=== PATIENT | male | born 1990 | race Two or more races ===

== ENCOUNTER → 2016-07-02 | Outpatient (CLI) | payer OTHER ==
--- NOTE | 2016-07-09 00:26 | ECWPNPC ---
PATIENT NAME: GABBY DIAZ : 1990 GENDER: MALE VISIT DATE: 07/02/2016 DISCHARGE DATE: 07/02/16 1153 VISIT LOCKED DATE TIME: PHYSICIAN: KACEY CREWS RESOURCE: KACEY CREWS REASON FOR APPOINTMENT 1. CARPAL TUNNEL HISTORY OF PRESENT ILLNESS FALL RISK SCREENING: SCREENING :NO FALLS IN THE PAST YEAR 25 YEAR OLD MALE PATIENT WITH HISTORY OF LEFT WRIST PAIN. PATIENT DESCRIBES THE PAIN SHARP, THROBBING, AND IT COMES AND GOES WITH TINGLINESS AND NUMBNESS WITH A PAIN SCORE OF 6/10 ON TODAY'S VISIT. PATIENT REPORTS THAT THE PAIN STARTED ABOUT 4 WEEKS AGO. PATIENT REPORTS THAT HE WOKE UP WITH NUMBNESS IN HIS HAND. AT FIRST HE THOUGHT HE SLEPT WRONG, BUT THE PAIN CONTINUED EVERY NIGHT AND THEN IT BEGAN TO ACHE DURING THE DAY. PATIENT IS WORST AT NIGHT, WITH A NUMBNESS AND TINGLY DURING THE DAY .PATIENT REPORTS THAT WEARING A BRACE AND KEEPING HIS HAND AT REST HELPS TO KEEP THE PAIN DOWN, BUT DUE TO HIS JOB HE NEEDS THE ABILITY TO USE BOTH HIS HANDS. PATIENT REPORTS THAT ANY TYPE OF MOVEMENT WITH HIS HAND INCREASES HIS PAIN, LIKE EATING, WRITING, AND HAVING THE PAIN IN HIS DOMINATE HAND ONLY MAKES IT WORST. PATIENT REPORTS THAT HE HAS SEEN TWO DIFFERENT PROVIDERS PRIOR TO SEEING US AND THEY INFORMED HIM THAT HE HAS CARPEL TUNNEL SYNDROME IN HIS LEFT WRIST. PATIENT REPORTS THAT HE HAS RADIATING PAIN GOING UP HIS ARM STOPPING AT HIS BICEPS. PAIN SCREENING: PATIENT HAS A COMPLAINT OF ACUTE OR CHRONIC PAIN YES CURRENT MEDICATIONS TAKING NAPROXEN 250 MG TABLET 1 TABLET ORALLY TWICE A DAY TAKING NEXIUM 20 MG CAPSULE DELAYED RELEASE ORALLY MEDICATION LIST REVIEWED AND RECONCILED WITH THE PATIENT PAST MEDICAL HISTORY NO MEDICAL HISTORY. ALLERGIES N.K.D.A. SURGICAL HISTORY WISDOM TEETH EXTRACTED 2013 FAMILY HISTORY FATHER: ALIVE MOTHER: ALIVE SIBLINGS: ALIVE SOCIAL HISTORY GENERAL: TOBACCO USE ARE YOU A:NONSMOKER HIV / HEP-C SCREENING HIV TEST OFFERED TO PATIENT:YES DATE OFFERED:06/23/2016 TEST ACCEPTED:NO REASON:PATIENT DECLINED HEP-C TEST OFFERED TO PATIENT:NO OCCUPATION: [employer]. MARITAL STATUS: SINGLE. PROTESTANT NO PREFERENCE. LANGUAGE [place]. EDUCATION HS GRAD WITH SOME COLLEGE. LEARNING BARRIERS / SPECIAL NEEDS BARRIERS TO LEARNING?NO HEARING IMPAIRED?NO VISION IMPAIRED?NO COGNITIVELY IMPAIRED?NO READINESS TO LEARN?YES LEARNING PREFERENCES?NO LEARNING CAPABILITIES PRESENT?YES EMOTIONAL BARRIERS?NO ADVANCED DIRECTIVES HEALTH CARE PROXY?NO PLAN IN PLACE THROUGH HOSPITALIZATION/MAJOR DIAGNOSTIC PROCEDURE NO HOSPITALIZATION HISTORY. REVIEW OF SYSTEMS CONSTITUTIONAL: ANY CHANGE IN YOUR MEDICAL CONDITION? NO . CHILLS NO . FEVER NO . INFECTION: DO YOU HAVE NEW INFECTIONS? NO . DO YOU HAVE HISTORY OF MRSA? NO . MUSCULOSKELETAL: ANY NEW PATTERNS OF PAIN OR NUMBNESS? YES BEGAN A COUPLE WEEKS AGO ..STARTED IN THE MORNING ..NUMB..PAIN IS WORST AT NIGHT NOW IT IS CONSTANT . SYTEMIC LUPUS NO . GASTROENTEROLOGY: ANY NEW CHANGE IN BOWEL CONTROL? NO . BARRETTS ESOPHAGUS NO . CIRRHOSIS NO . HEPATITIS NO . LIVER FAILURE NO . ACID REFLUX NO . UNEXPLAINED WEIGHT LOSS NO . GENITOURINARY: ANY NEW CHANGE IN BLADDER CONTROL? NO . IS THERE A CHANCE YOU COULD BE ? NO . HEMATOLOGY/LYMPH: DO YOU TAKE ANY BLOOD THINNERS? (FOR EXAMPLE- COUMADIN, PLAVIX, AGGRENOX, PLATEL, PRADAXA, OR XARELTO) NO . WHEN WAS YOUR LAST DOSE? DATE: TIME: . LOW PLATELET COUNT NO . SICKLE CELL DISEASE NO . VON WILLIEBRANDS NO . FACTOR V LEIDEN NO . THALLASEMIA NO . ANEMIA NO . EASY BRUISING NO . NEUROLOGY: HAVE YOU FALLEN IN THE PAST 6 MONTHS? NO . ANY NEW EXTREMITY NUMBNESS OR WEAKNESS? NO . HEAD INJURY NO . DEMENTIA NO . CEREBRAL PALSY NO . MULTIPLE SCLEROSIS NO . DIZZINESS NO . HEADACHE NO . STROKES NO . VERTIGO NO . CARDIOLOGY: DO YOU HAVE A PACEMAKER OR DEFIBRILLATOR? NO . ANGINA NO . HEART ATTACK NO . HEART SURGERY NO . CONGESTIVE HEART FAILURE/FLUID OVERLOAD NO . CHEST PAIN NO . HIGH BLOOD PRESSURE NO . IRREGULAR HEART BEAT NO . RESPIRATORY: HAVE YOU BEEN SICK IN THE PAST WEEK? NO . FEVER NO . FLU LIKE SYMPTOMS? NO . CPAP NO . BYPAP NO . ASTHMA NO . EMPHYSEMA NO . CHRONIC LUNG DISEASES NO . SHORTNESS OF BREATH ON EXERTION NO . COUGH NO . SNORING NO . INTEGUMENTARY: DO YOU HAVE ANY RASHES OR OPEN SORES? NO . ALLERGIC/IMMUNO: ARE YOU ALLERGIC TO SHELLFISH OR IV DYE? NO . ANY NEW ALLERGIES? NO . PSYCHIATRIC: DO YOU HAVE THOUGHTS OF HURTING YOURSELF OR SOMEONE ELSE? NO . ARE YOU ABUSED, NEGLECTED, OR IN AN UNSAFE ENVIRONMENT? NO . ENDOCRINOLOGY: ARE YOU DIABETIC? NO . THYROID DISORDER NO . OTHER: DO YOU NEED ANY PRESCRIPTIONS? NO . IF YES, PLEASE LIST: ____ . ANY NEW PROBLEMS WITH YOUR MEDICATIONS? NO . WHEN DID YOU LAST EAT? ____ . WHEN DID YOU LAST DRINK? ____ . WHAT DID YOU LAST DRINK? ____ . NAME OF PERSON DRIVING YOU HOME? ____ . DO YOU HAVE ANY OTHER QUESTIONS OR CONCERNS NO . REVIEWED BY: PROVIDER: KACEY CREWS MD . VITAL SIGNS WT 188.0 LBS, HT 69", BMI 27.76 INDEX, BP 130/66 MM HG, HR 64 /MIN, RR 16 /MIN, TEMP 97.8 F, OXYGEN SAT % 100, NA INITIALS TL 0856. EXAMINATION : PATIENT IS ALERT O X 3 AND COOPERATIVE. PATIENT'S LEFT HAND LEISURE STUDIES PROFESSOR IS WEAKER THAN THE RIGHT. PATIENT'S LEFT HAND IS COOLER IN TEMPERATURE COMPARED TO THE RIGHT HAND. PRESSURE ON THE WRIST CAUSES PAIN. THE LEFT WRIST IS POSITIVE FOR PULSES. CAPILLARY NAIL REFILL TEST IS POSITIVE ON THE RIGHT AND LEFT HAND. ASSESSMENTS CARPAL TUNNEL SYNDROME, LEFT UPPER LIMB - G56.02 (PRIMARY) PAIN IN LEFT HAND - M79.642 TREATMENT CARPAL TUNNEL SYNDROME, LEFT UPPER LIMB NOTES: WE DISCUSSED SEVERAL ISSUES WITH MR. DIAZ'S PAIN MANAGEMENT CASE. I WAS WITH THE PATIENT MORE THAN 50 MINUTES IN THE ENCOUNTER TODAY, MORE THAN HALF THE TIME WAS DEDICATED TO DISCUSSING ALTERNATIVES, COUNSELING, DISCUSSING HIS PAIN MANAGEMENT CASE AND IN THE COORDINATION OF SERVICE WITH [facility] AND [facility]. I WAS ABLE TO FIND A QUICK APPONTMENT AT THE ORTHO SERVICES AFTER MULTIPLE PHONE CALLS. I DISCUSSED WITH THE PATIENT, SINCE THE PAIN START ABOUT 4 WEEKS AGO, AT THIS TIME HIS IS SUFFERING FROM ACUTE PAIN. I INFORMED THE PATIENT, I MAINLY TREAT CHRONIC PAIN, WHICH IS PAIN WHICH IS PAIN THAT HAS LASTED FOR MORE THAN 3 MONTHS. FURTHER DISCUSSED WITH THE PATIENT THAT AT THIS TIME I BELIEVE IT WOULD GREATLY BENEFIT HIM TO SEE AN SUPERVISOR ENROBING TO DISCUSS HIS PAIN. I WAS ABLE TO CONTACT [facility] AND THEY WILL BE ABLE TO SEE THE PATIENT IN A COUPLE OF DAYS. I ALSO CONTACT HIS PCM'S OFFICE IN ORDER TO REQUEST THAT MR. DIAZ BE REFERRED TO SEE AN SUPERVISOR ENROBING. I DISCUSSED WITH THE PATIENT THAT ACUTE PAIN IS NOT MY SPECIALTY, I CONTACTED THE URGENT CARE WHERE THE PATIENT WENT TO DISCUSS HOW TO TREAT CURRENT HIS PAIN AT THIS TIME UNTIL HE CAN SEE THE SUPERVISOR ENROBING. PATIENT WILL BE PRESCRIBED A PREDNISONE TODAY. DISCUSSED WITH THE PATIENT SHOULD HE EXPERIENCE MORE PAIN AND IF HIS HANDS BEGIN TO TURN BLACK TO IMMEDIATELY GO TO THE ER. PATIENT WILL FOLLOW UP WITH ME IN 2 MONTHS AND TO CALL NEEDED FOR HIS PAIN. INSTRUCTIONS WERE GIVEN, QUESTIONS WERE ANSWERED, PATIENT REPORTS UNDERSTANDING AND AGREES WITH THE PLAN. I, TANYA CLARK, DOCUMENTED THE ABOVE INFORMATION ACTING A SCRIBE FOR DR. CREWS. I HAVE REVIEWED THE ABOVE DOCUMENT, WRITTEN BY TANYA CLARK SCRIBE AND I VERIFY THAT IT IS ACCURATE. DR. MILLER -THANK YOU FOR YOUR KIND REFERRAL OF MR. DIAZ. IF YOU WOULD LIKE TO DISCUSS HIS CASE WITH ME, PLEASE CALL ME AT THE PAIN CENTER AT [phone]. OTHERS START PREDNISONE TABLET, 20 MG, 1 TABLET, ORALLY, ONCE A DAY, 5 DAY(S), 5 TABLET, REFILLS 0 PROCEDURE CODES FA211 ESTABILISHED PATIENT [facility] FACILITY CHARGE G8730 PAIN ASSESS POS TOOL F/U PLAN DOC G8427 DOC MEDS VERIFIED W/PT OR RE DISPOSITION & COMMUNICATION FOLLOW UP 2 MONTHS ELECTRONICALLY SIGNED BY KACEY CREWS MD ON 07/08/2016 AT 09:25 AM EDT DISCLAIMER : THIS IS A VISIT SUMMARY EXTRACTED FROM THE [employer] CHART. IT IS NOT A COPY OF THE [employer] PROGRESS NOTE. MTDD
== END ==
LOC: M PAIN 08:40
PROVIDERS: ATTEND Anesthesiology
DX: G89.29 Other chronic pain (principal); G56.02 Carpal tunnel syndrome, left upper limb; Z79.899 Other long term (current) drug therapy

== ENCOUNTER → 2017-06-24 | Outpatient (CLI) | payer OTHER | LOC: M LRY 20:14 | DX: S69.92XA Unspecified injury of left wrist, hand and finger(s), initial encounter (principal); X58.XXXA Exposure to other specified factors, initial encounter; Y92.89 Other specified places as the place of occurrence of the external cause | CPT/HCPCS: 73140 ==

== ENCOUNTER → 2017-11-24 | Outpatient (CLI) | payer OTHER ==
[2017-12-01 08:43] LABS: SUMMARY SEE SEPARATE REPORT
== END ==
LOC: M SLEEP 19:32
DX: R40.0 Somnolence (principal)
CPT/HCPCS: 95810

== ENCOUNTER → 2018-02-06 | Outpatient (REF) | payer OTHER ==
[2018-02-06 18:04] LABS: AMPHETAMINES URINE REFLEX NEGATIVE (NEGATIVE); BARBITURATES URINE REFLEX NEGATIVE (NEGATIVE); BENZODIAZEPINES URINE REFLEX NEGATIVE (NEGATIVE); CANNABINOIDS URINE REFLEX NEGATIVE (NEGATIVE); COCAINE METABOLITE URINE REFLE NEGATIVE (NEGATIVE); METHADONE URINE REFLEX NEGATIVE (NEGATIVE); OPIATES URINE REFLEX NEGATIVE (NEGATIVE); PHENCYCLIDINE URINE REFLEX NEGATIVE (NEGATIVE)
== END ==
LOC: M LAB REF 16:54
DX: R40.0 Somnolence (principal)

== ENCOUNTER → 2018-02-09 | Outpatient (REF) | payer OTHER | LOC: M LAB REF 17:11 | DX: R40.0 Somnolence (principal) ==

== ENCOUNTER → 2018-09-08 | Outpatient (REF) ==
--- NOTE | 2018-09-09 01:59 | REP ---
Clinical: Left knee pain Technique: AP, lateral, bilateral oblique and sunrise views. Findings: The osseous structures and joint spaces are intact and normal. There is no evidence for acute fracture or dislocation. No joint effusion is appreciated. Surrounding soft tissues are unremarkable. No subcutaneous emphysema or radiodense foreign body. Impression: Normal age-appropriate left knee examination. No acute fracture or dislocation. Electronically Signed by Charbel Barton MD 09/09/2018 01:51 A
--- NOTE | 2018-09-09 02:01 | REP ---
Clinical: Pain and disability. Technique: AP, lateral, coned-down views of the lumbosacral spine. Findings: Alignment and lordosis maintained. No acute fracture / compression injury or subluxation. Minimal endplate sclerosis with disc space narrowing at L5-S1 is appreciated and chronic L5 spondylolysis cannot be excluded. Remainder examination is normal. Impression: Mild spondylosis at L5-S1. Electronically Signed by Charbel Barton MD 09/09/2018 01:52 A
== END ==
LOC: M SMT 10:52
PROVIDERS: ATTEND Internal Medicine
DX: Z02.9 Encounter for administrative examinations, unspecified (principal)

== ENCOUNTER 2018-10-13 09:55 | Day surgery (SDC) | payer OTHER ==
[~2018-10-13] VITALS: Ht 175.3 cm; Wt 93.9 kg
[~2018-10-13 09:55] MED LIST: ALLE180T33 PO; BUSP10TA PO; LEXA1TAB PO; LORA-243 PO; LUNE3TAB36 PO; NS 1,000 ML IV ONE; OMEP40CA97 PO; PROAAER10 INH; RANI150T PO
[2018-10-13] MEDS ORDERED: fentaNYL 100 MCG/2 ML INJECTION (J3010) As Ordered ONE (10:55)
[2018-10-13] MEDS ORDERED: LIDOCAINE 2% INJ 100 MG/5 ML SDV (FOR ANES.) As Ordered ONE (10:56)
[2018-10-13] MEDS ORDERED: propofoL 200 MG/20 ML VIAL As Ordered ONE (11:00)
--- NOTE | 2018-10-13 12:08 | ROOR ---
Patient Name: Mike Burrows Procedure Date: 10/13/2018 11:48 AM Date of : 1990 Age: 27 Room: [facility] Gender: Male Note Status: Finalized Procedure: Upper Endoscopy + Biopsies Indications: Heartburn, Failure to respond to medical treatment Providers: Issa Morrell MD Referring MD: José Antonio Mcmahon Requesting Provider: Medicines: Monitored Anesthesia Care Complications: No immediate complications. Procedure: Pre-Anesthesia Assessment: - The heart rate, respiratory rate, oxygen saturations, blood pressure, adequacy of pulmonary ventilation, and response to care were monitored throughout the procedure. The Endoscope was introduced through the mouth, and advanced to the second part of duodenum. The upper GI endoscopy was accomplished without difficulty. The patient tolerated the procedure well. Findings: The Z-line was regular and was found 40 cm from the incisors. Mildly severe esophagitis with no bleeding was found 40 cm from the incisors. Biopsies were taken with a cold forceps for histology. Localized moderate inflammation characterized by congestion (edema) and erythema was found in the gastric antrum. Biopsies were taken with a cold forceps for Helicobacter pylori testing. The exam of the duodenum was otherwise normal. Impression: - Z-line regular, 40 cm from the incisors. - Mildly severe reflux esophagitis. Rule out Boothe's esophagus. Biopsied. - Mucosal changes suspicious for gastritis. Biopsied. - The examination was otherwise normal. Recommendation: - Patient has a contact number available for emergencies. The signs and symptoms of potential delayed complications were discussed with the patient. Return to normal activities tomorrow. Written discharge instructions were provided to the patient. - High fiber diet. - Discharge patient to home. - Continue present medications. - Await pathology results. - Telephone GI clinic for pathology results in 1 week. - Repeat upper endoscopy for surveillance based on pathology results. - The findings and recommendations were discussed with the patient's family. Issa Morrell MD Issa Morrell MD 10/13/2018 12:07:55 PM Electronically signed by Issa Morrell MD Number of Addenda: 0 Note Initiated On: 10/13/2018 11:48 AM Estimated Blood Loss: Estimated blood loss: none.
[2018-10-13 12:20] VITALS: BP 123/79
== END 2018-10-13 12:32 | disposition home or self-care (01) ==
LOC: M OPP 09:55
PROVIDERS: ATTEND Internal Medicine Gastroenterology
DX: K21.0 Gastro-esophageal reflux disease with esophagitis (principal); K31.89 Other diseases of stomach and duodenum; R12 Heartburn; Z79.899 Other long term (current) drug therapy
CPT/HCPCS: 43239; 88305; J3010

== ENCOUNTER → 2018-11-01 | Outpatient (CLI) | payer OTHER ==
[~2018-11-01] MED LIST changes: -NS 1,000 ML IV ONE; +OMEP40CA2 PO; -OMEP40CA97 PO
--- NOTE | 2018-11-02 07:54 | REP ---
Left ankle four views : There is no fracture or dislocation. Mineralization and joint spaces are normal. There are no calcifications or foreign bodies. Impression: Negative left ankle . Electronically Signed by Rayshawn Hernandez MD 11/02/2018 07:03 A
== END ==
LOC: M LRY 18:11
PROVIDERS: ATTEND Physician Assistant
DX: M25.572 Pain in left ankle and joints of left foot (principal)